=== PATIENT | female | born 1995 | race Caucasian/White ===

== ENCOUNTER 2017-12-01 20:01 | Emergency (ER) | payer OTHER ==
[~2017-12-01] VITALS: Ht 152.4 cm; Wt 48.6 kg
[2017-12-01] MEDS ORDERED: BIRTH CONTROL PO (21:54)
[2017-12-01] MEDS ORDERED: TAMIFLU 75MG75 MG PO (22:16)
[2017-12-01 23:00] VITALS: BP 100/55; TEMP 102
[2017-12-01 23:43] VITALS: PULSE 110
== END 2017-12-02 | disposition home or self-care (01) ==
LOC: COL.ER 20:01
DX: J11.1 Influenza due to unidentified influenza virus with other respiratory manifestations (principal); Z98.890 Other specified postprocedural states